=== PATIENT | female | born 1975 | race American Indian/Alaskan Native ===

== ENCOUNTER 2021-09-10 13:07 | Emergency (ER) | payer OTHER ==
[2021-09-10 13:13] VITALS: BP 169/102
--- NOTE | 2021-09-10 13:46 | XRay Report ---
Right ankle-3 views INDICATION: ankle pain. COMPARISON: None available. IMPRESSION: No acute fracture. There is abnormal widening of the talonavicular articulation especia lly dorsally with pes planus configuration. There is also midfoot sag. Moderately advanced talonavicu lar degenerative arthrosis. Mild soft tissue swelling along the dorsal aspect of the midfoot/hindfoo t junction. Signer Name: Chris Stratton MD Signed: 09/10/2021 1:41 PM Workstation Name: [id number]
--- NOTE | 2021-09-10 14:32 | Emergency Department Report ---
ED Lower Extremity HPI - General Chief Complaint: Extremity Injury, Lower Stated Complaint: RT ANGLE PAIN Time Seen by Provider: 09/10/21 13:17 Source: patient Mode of arrival: Ambulatory Limitations: No Limitations - History of Present Illness Initial Comments: 46-year-old female with a past medical history of a chronic childhood ankle problem that required surgery presents emerged department complaining of pain and swelling to the right ankle after starting a new job requiring excessive amount of walking and standing. She reports pain is dull and throbbing worse with palpation and range of motion with no numbness or tingling. No traumatic event to her knowledge requiring sudden pain pain has been gradually worsening over the last few days. MD Complaint: ankle injury -: Gradual Injury: Ankle: Right, Foot: Right Type of Injury: unknown Place: work Improves With: nothing Worsens With: movement, palpation - Related Data Previous Rx's Medication Instructions Recorded Last Taken Type Ketorolac [Toradol] 10 mg PO Q6H PRN #14 09/10/21 Unknown Rx Allergies Allergy/AdvReac Type Severity Reaction Status Date / Time No Known Allergies Allergy Unverified 09/10/21 13:10 ED Review of Systems ROS: Stated complaint: RT ANGLE PAIN Other details as noted in HPI Comment: All other systems reviewed and negative ED Past Medical Hx - Past Medical History Previous Medical History?: Yes Additional medical history: Cerebral Palsy, Vaginal delivery x 3 - Surgical History Past Surgical History?: No - Medications Home Medications: Home Medications Medication Instructions Recorded Confirmed Last Taken Type Ketorolac [Toradol] 10 mg PO Q6H PRN #14 09/10/21 Unknown Rx ED Physical Exam - General Limitations: No Limitations General appearance: alert, in no apparent distress - Head Head exam: Present: atraumatic, normocephalic - Eye Eye exam: Present: normal appearance - ENT ENT exam: Present: mucous membranes moist - Neck Neck exam: Present: normal inspection - Respiratory Respiratory exam: Present: normal lung sounds bilaterally. Absent: respiratory distress - Cardiovascular Cardiovascular Exam: Present: regular rate, normal rhythm. Absent: systolic murmur, diastolic murmur, rubs, gallop - GI/Abdominal GI/Abdominal exam: Present: soft, normal bowel sounds - Extremities Exam Extremities exam: Present: normal inspection, tenderness, normal capillary refill - Expanded Lower Extremity Exam Right Hip exam: Present: normal inspection Upper Leg exam: Present: normal inspection Lower Leg exam: Present: tenderness Ankle exam: Present: tenderness, swelling. Absent: abrasion, laceration Neuro vascular tendon exam: Present: no vascular compromise 1 - Tenderness to this region with mild swelling just distal to the medial malleoli region. Pes planus is noted. Pulses 2+2 dorsalis pedis and posterior tibial - Back Exam Back exam: Present: normal inspection - Neurological Exam Neurological exam: Present: alert, oriented X3 - Psychiatric Psychiatric exam: Present: normal affect, normal mood - Skin Skin exam: Present: warm, dry, intact, normal color. Absent: rash ED Course Vital Signs 09/10/21 13:11 Temperature 97.8 F Pulse Rate 92 H Blood Pressure 169/102 O2 Sat by Pulse 99 Oximetry ED Lower Extremity MDM - Radiology Data Radiology results: report reviewed [address] [address] XRay Report Signed Patient: EDEJAY SAUER MR#: [id number] [birth year] : 1975 Acct:[id number] Age/Sex: 46 / F ADM Date: 09/10/21 Loc: ED Attending Dr: Ordering Physician: PREETI WAKEFIELD Date of Service: 09/10/21 Procedure(s): XR ankle 3+V RT Accession Number(s): [id number] cc: PREETI WAKEFIELD Fluoro Time In Minutes: Right ankle-3 views INDICATION: ankle pain. COMPARISON: None available. IMPRESSION: No acute fracture. There is abnormal widening of the talonavicular articulation especially dorsally with pes planus configuration. There is also midfoot sag. Moderately advanced talonavicular degenerative arthrosis. Mild soft tissue swelling along the dorsal aspect of the midfoot/hindfoot junction. Signer Name: Chris Stratton MD Signed: 09/10/2021 1:41 PM Workstation Name: [id number] Transcribed By: JW Dictated By: Chris Stratton MD Electronically Authenticated By: Chris Stratton MD Signed Date/Time: 09/10/21 1341 DD/ 1340 TD/TT: Critical care attestation.: If time is entered above; I have spent that time in minutes in the direct care of this critically ill patient, excluding procedure time. ED Disposition Clinical Impression: Right ankle pain, Pes planus of right foot Disposition: HOME / SELF CARE / HOMELESS Is pt being admited?: No Does the pt Need Aspirin: No Condition: Stable Instructions: How to Use Cold Therapy, [id number], Flat Feet, Adult, Joint Pain, Reactive Arthritis Prescriptions: Ketorolac [Toradol] 10 mg PO Q6H PRN #14 PRN Reason: Pain Referrals: [facility] [Provider Group] - 3-5 Days Forms: Work/School Release Form(ED)
== END 2021-09-10 15:18 | disposition home or self-care (01) ==
LOC: ED 13:07
DX: M21.41 Flat foot [pes planus] (acquired), right foot (principal); Z98.890 Other specified postprocedural states; Z79.899 Other long term (current) drug therapy
CPT/HCPCS: 99282; 99283